=== PATIENT | male | born 2000 | race Caucasian/White ===

== ENCOUNTER 2024-09-06 07:39 | Emergency (ER) | payer BC ==
[~2024-09-06 07:39] MED LIST: TETRACAINE HCL 0.5% 4ML OPTH ONE
[2024-09-06] MEDS ORDERED: FLUORESCEIN SODIUM 1 MG/WRAP ONE (07:40)
[2024-09-06] MEDS ORDERED: TOBRAMYCIN SULF 0.3% OPTH OINT ONE (07:46)
[2024-09-06] MEDS ORDERED: CYCLOPENTOLATE 2% OPTH 2 ML ONE (07:47)
[2024-09-06] MEDS ORDERED: MUPIROCIN 2% OINT 22GM TUBE TOP ONE (08:32)
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
[2024-09-06 10:23] VITALS: BP 134/89; TEMP 97.1; O2SAT 97
== END 2024-09-06 10:11 | disposition home or self-care (01) ==
LOC: ER 07:39
DX: S05.02XA Injury of conjunctiva and corneal abrasion without foreign body, left eye, initial encounter (principal); S05.01XA Injury of conjunctiva and corneal abrasion without foreign body, right eye, initial encounter; T26.12XA Burn of cornea and conjunctival sac, left eye, initial encounter; T26.11XA Burn of cornea and conjunctival sac, right eye, initial encounter; T49.3X1A Poisoning by emollients, demulcents and protectants, accidental (unintentional), initial encounter; Y92.69 Other specified industrial and construction area as the place of occurrence of the external cause; Y93.89 Activity, other specified; Y99.0 Civilian activity done for income or pay
CPT/HCPCS: 99284